=== PATIENT | female | born 1955 | race Caucasian/White ===

== ENCOUNTER 2017-08-10 11:10 | Day surgery (SDC) | payer BC ==
[2017-08-09 12:17] VITALS: BMI 27.3
--- NOTE | 2017-08-10 08:13 | HP ---
Satellite H - Chief Complaint Chief Complaint: right hand pain, weakness, numbness History of Present Illness: right CTS, Cubital tunnel syndrome History Source: Patient Limitations to Obtaining History: No Limitations - Past Medical History Allergies/Adverse Reactions: Allergies Allergy/AdvReac Type Severity Reaction Status Date / Time ziprasidone [From Carmela] Allergy Intermediate Verified 08/09/17 12:18 Pulmonary: Yes: Sleep Apnea (former sleep apnea, resolved after gastric bypass) Gastrointestinal: Yes: Peptic Ulcer Disease (duodenal ulcer with perforation 2007) Heme/Onc: Yes: Anemia (IV iron therapy occasionally needed 4 transfusions over last 3 years since duodenal ulcer diagnosis) Musculoskeletal: Yes: Osteoarthritis, Other (peripheral neuropathy bilateral lower extremities (since chemotherapy)) Rheumatology: Yes: Fibromyalgia - Current Medications Current Medications: Home Medications Medication Instructions Recorded Escitalopram Oxalate [Lexapro -] 10 mg PO DAILY 07/11/14 Losartan/Hydrochlorothiazide 1 each PO DAILY 07/11/14 [Hyzaar 100-25 Tablet] Aspirin [ASA -] 81 mg PO DAILY 08/09/17 Buspirone HCl [Buspar -] 50 mg PO BID 08/09/17 Protonix 40 mg PO DAILY 08/09/17 Satellite Physical Exam - Physical Examination General Appearance: Well Nourished ENT: Clear Lung: Clear to auscultation Heart: Regular rate & rhythm Breasts: Soft, Other Abdomen: Soft, No hepatosplenomegaly Satellite Impression/Plan - Impression/Plan Impression: right CTS and Cubital tunnel syndrome Operative Procedure: right CTR and Ulnar nerve transposition Date to be Performed: 08/10/17
[2017-08-10] MEDS ORDERED: ceFAZolin SODIUM 1 GM VIAL IVPB ONE (13:05)
[2017-08-10] MEDS ORDERED: PROPOFOL 20 ML ONE (13:12)
[2017-08-10] MEDS ORDERED: MIDAZOLAM HCL 2 MG/2 ML SINGLE DOSE VIAL ONE (13:12)
[2017-08-10] MEDS ORDERED: SUCCINYLCHOLINE CHLORIDE 200 MG/10 ML VIAL ONE (13:12)
[2017-08-10] MEDS ORDERED: DEXAMETHASONE SOD PHOSPHATE 4 MG/1 ML VIAL ONE (13:22)
[2017-08-10] MEDS ORDERED: ePHEDrine SULFATE 50 MG/1 ML AMPULE ONE (13:24)
--- NOTE | 2017-08-10 14:38 | OP ---
Operative Note - Note: Operative Date: 08/10/17 Pre-Operative Diagnosis: right CTS, and Cubital tunnel syndrome Operation: right CTR, tenosynovectomy, subcutaneous ulnar nerve transposition Post-Operative Diagnosis: Same as Pre-op Surgeon: Rome Cardenas Anesthesiologist/AIR CONDITIONING INSTALLER SUPERVISOR: Matilde Mattson Anesthesia: General, Local Specimens Removed: tenosynovium Estimated Blood Loss (mls): 0 Drains, Volume Out (mls): 0 Blood Volume Replaced (mls): 0 Fluid Volume Replaced (mls): 1,000 Operative Report Dictated: Yes
[2017-08-10] MEDS ORDERED: ONDANSETRON 4 MG/2 ML VIAL IVPUSH PRN (15:36)
[2017-08-10] MEDS ORDERED: LACTATED RINGERS SOLUTION 1,000 ML IV SCH (15:45)
[2017-08-10] MEDS ORDERED: oxyCODONE HCL 5 MG TABLET PO PRN ×2 (15:48)
[2017-08-10 16:10] VITALS: TEMP 97.6
[2017-08-10] MEDS ORDERED: oxyCODONE HCL 5 MG TABLET ONE (16:38)
[2017-08-10 17:13] VITALS: BP 140/90; PULSE 100
--- NOTE | 2017-08-11 11:43 | SPEC ---
DATE OF OPERATION: 08/10/2017 PREOPERATIVE DIAGNOSIS: Right carpal tunnel syndrome and cubital tunnel syndrome. POSTOPERATIVE DIAGNOSIS: Right carpal tunnel syndrome and cubital tunnel syndrome. OPERATION: Right carpal tunnel release, tenosynovectomy, and subcutaneous ulnar nerve transposition. SURGEON: Stephania Kimbrough M.D. PHARMACEUTICAL PROCESS ENGINEER: None. RUBBER GOODS TESTER WATER ANESTHESIA: LMA with local injection with 15 mL of 0.5% Marcaine and 1% lidocaine mix. DRAINS: None. COMPLICATIONS: None. SPECIMENS: Tenosynovium, right wrist. BLOOD LOSS: None. BLOOD GIVEN: None. FLUID REPLACEMENT: 1000 mL. INDICATIONS: This patient is a 62-year-old female with the preoperative diagnoses of right carpal tunnel syndrome and cubital tunnel syndrome. After understanding the potential risks, complications, alternatives and benefits of surgery versus nonsurgical treatment, the patient elected to undergo this procedure. She understands she likely will not get complete relief of her symptoms, including continuation of some of her numbness and tingling, continual weakness and dysfunction. DESCRIPTION OF PROCEDURE: The patient was brought to the operating room, peripheral IV placed and intravenous sedation was given. One gram of intravenous Ancef was given. MAC anesthesia was induced. A tourniquet was applied to the right upper arm and the right upper extremity was prepped and draped in sterile fashion. The entire case was done under 3.8 loupe magnification. A marking pen was utilized to timo out a longitudinal incision in an already existing skin crease. Twenty mL of 0.5% Marcaine mixed with 1% Lidocaine was injected in and around the surgical incision. The right upper extremity was elevated, exsanguinated with an Esmarch bandage and the tourniquet inflated to 250 mmHg. A No. 15 scalpel blade was utilized to cut down through the skin. Subcutaneous hemostasis was achieved with the bipolar cautery. Dissection was done through the superficial palmar fascia. Self-retaining retractors were placed into the wound. Under direct visualization, the transverse carpal ligament was transected with a No. 15 scalpel blade, exposing the median nerve and the contents of the carpal tunnel. The distal and proximal extents of the release were completed with a Littler scissor and checked with irrigation and my small finger. They were seen to be complete. Limited dissection was done on the radial side of the median nerve and more extensive dissection was done on the ulnar side of the median nerve. The patients nerve was seen to be quite compressed by epineurium and therefore a limited epineurotomy was performed. A Ragnell retractor was used to gently retract the median nerve in a radial direction. The patient had a lot of tenosynovitis and therefore a tenosynovectomy was performed off all 9 flexor tendons. This was passed off the field as tenosynovium right wrist. The floor of the carpal tunnel was checked. There were no abnormal masses or ganglion cysts. The area was copiously irrigated and washed out and closure begun. Undyed 4-0 Vicryl was used to close the deep dermal layer. Final skin reapproximation was done with horizontal mattress 4-0 nylon sutures. Next, we turned our attention to the right elbow. A curvilinear incision was marked out with a marking pen. The incision was made with a number 15 scalpel blade. Dissection was done down through the subcutaneous fat. Weitlaner retractors were placed into the wound. We dissected down to the medial epicondyle. Anterior and posterior flaps were raised. The ulnar nerve was identified proximally. Circumferential dissection was done. A 1/2-inch Harpreet drain was placed around it for identification, retraction and protection. I then worked my way distally. The cubital tunnel was very tight. I released the roof of the cubital tunnel. Ahuja ligament was very tight. This was released as well, as well as the 2 heads of the FCU. I was then able to feel it with my finger, going proximally to see there were no other points of compression. There was no significant midlength muscular septum. I was able to transpose the nerve anterior to the axis of rotation of the elbow quite easily. The area was copiously irrigated and washed out. Next, I used 2-0 Vicryl suture to tack down the deep adipose layer to the medial epicondyle, then the anterior deep adipose layer to the posterior deep adipose layer, tacking this down as well. I checked several points during this process to make sure the ulnar nerve was not tacked down. It was not. It was not tight at any location. I could move the elbow under direct visualization with no problems. Next, 2-0 Vicryl was used to close the deep adipose layer. 4-0 undyed Vicryl was used to close the deep dermal layer. Final skin reapproximation was done with a running subcuticular 4-0 Biosyn stitch. The area was then washed and dried, covered with Steri-Strips. The carpal tunnel syndrome incision was covered with Xeroform, 4x4s, fluffs between the fingers, Webril on the entire arm, and a 5-inch Ortho-Glass splint was put on in a posterior splint fashion and held in place with a 4-inch and a 6-inch Alexander bandages. The tourniquet was taken down after a total tourniquet time of 58 minutes. There were no complications during the case. The patient tolerated the procedure quite well and was brought to the ambulatory recovery room in stable condition. STEPHANIA KIMBROUGH M.D. [id number]
--- NOTE | 2017-08-12 16:13 | PATH ---
Surgical Pathology Report Patient Name: CECI SINHA [facility]. Rec. #: [id number] /Age/Gender: 1955 (Age: 62) / F Account: [id number] Location: [facility] Taken: 08/10/2017 Received: 08/11/2017 Reported: 08/12/2017 Physicians: Rome Cardenas M.D. Specimen(s) Received TENOSYNOVIUM RIGHT WRIST Clinical History Right carpal tunnel syndrome Final Diagnosis TENOSYNOVIUM, WRIST, RIGHT, EXCISION: BENIGN DENSE FIBROCONNECTIVE TISSUE. Electronically Signed Hanh Webster M.D. Gross Description Received in formalin labeled "tenosynovium right wrist," is a 0.8 x 0.4 x 0.2 cm aggregate of oseguera-yellow soft tissue fragments. The specimen is entirely submitted in one cassette. /08/11/201708/11/2017
== END 2017-08-10 17:15 | disposition home or self-care (01) ==
LOC: JASU-SURG 11:10
PROVIDERS: ATTEND Orthopaedic Surgery
PROC: 01N50ZZ Release Median Nerve, Open Approach (ICD-10-PCS; principal; 2017-08-10 12:30)
PROC: 01X40Z4 Transfer Ulnar Nerve to Ulnar Nerve, Open Approach (ICD-10-PCS; 2017-08-10 12:30)
DX: G56.01 Carpal tunnel syndrome, right upper limb (principal); G56.21 Lesion of ulnar nerve, right upper limb
CPT/HCPCS: 88304-TC; 94760

== ENCOUNTER 2018-11-15 09:10 | Emergency (ER) | payer BC ==
--- NOTE | 2018-11-15 09:25 | PDOC ---
History of Present Illness - General Chief Complaint: Bite Stated Complaint: CAT BITE RIGHT LOWER LEG Time Seen by Provider: 11/15/18 09:24 - History of Present Illness Initial Comments: 11/15/18 09:38 Chief complaint: Cat bite History of present illness: Patient bitten by a feral cat approximately 36 hours ago right lateral calf. Complains of pain with palpation, redness, and swelling developing today. Needs tetanus immunizations and antibiotics because she has "joint replacements" and wishes to avoid infection. Took 2 g of amoxicillin last night, and another 500 mg this morning. Review of systems: Denies fever/chills or other systemic sign of infection. There is distal numbness tingling pain or weakness, limited range of motion or difficulty ambulating. Denies chest pain shortness of breath abdominal pain nausea vomiting diarrhea visual or focal neurologic symptoms. Remainder systems reviewed and negative Past medical history: Surgery for prosthetic joints, bipolar illness, depression , anxiety, and high blood pressure controlled on antihypertensive medication. Denies diabetes Social/family history reviewed and noncontributory Physical exam: Alert and oriented well-developed well-nourished no acute distress cooperative Afebrile, vital signs normal Right lower extremity: 3 superficial puncture wounds are visible, mid calf, laterally. Mild surrounding erythema and point tenderness. Mild localized swelling. Pulses full. No distal sensory or motor deficits. No lymphangitic streaking. Impression: Multiple puncture wounds right calf secondary to cat right. Plan: Tetanus booster, dose of intravenous antibiotics to continue orally. Close observation and follow-up primary physician. Return to ER if symptoms are worse area. The cat is confined at her home and will be presented to authorities as directed. Past History - Past Medical History Allergies/Adverse Reactions: Allergies Allergy/AdvReac Type Severity Reaction Status Date / Time ziprasidone [From Geodon] Allergy Intermediate Verified 08/09/17 12:18 pregabalin [From Lyrica] AdvReac Verified 11/15/18 09:22 Home Medications: Ambulatory Orders Escitalopram Oxalate [Lexapro -] 10 mg PO HS 07/11/14 Aspirin [ASA -] 81 mg PO DAILY 08/09/17 Buspirone HCl [Buspar -] 50 mg PO BID 08/09/17 Amox-Tr/K Cl [Augmentin 875-125mg Tablet -] 1 tab PO BID #14 tablet 11/15/18 Candesartan/Hydrochlorothiazid [Candesartan-Hctz 16-12.5 mg Tb] 1 each PO DAILY 11/15/18 Pantoprazole Sodium [Protonix] 40 mg PO DAILY 11/15/18 Anemia: Yes Asthma: No Cancer: Yes (BREAST, LEFT MASTECTOMY 2010) Cardiac Disorders: No CVA: No COPD: No CHF: No Dementia: No Diabetes: No GI Disorders: Yes (PERFORATED ULCERS 2010) Disorders: No HTN: Yes Hypercholesterolemia: No Liver Disease: No Psychiatric Problems: Yes (BIPOLAR) Seizures: No Thyroid Disease: No - Surgical History Abdominal Surgery: Yes (GASTRIC BYPASS, PERFORATED ULCER) Appendectomy: No Cardiac Surgery: No Cholecystectomy: No Lung Surgery: No Neurologic Surgery: No Orthopedic Surgery: Yes (L HIP BILAT KNEE REPLACEMENTS) - Suicide/Smoking/Psychosocial Hx Smoking History: Never smoked Have you smoked in the past 12 months: No Hx Alcohol Use: No Drug/Substance Use Hx: No Substance Use Type: None Hx Substance Use Treatment: No *DC/Admit/Observation/Transfer Diagnosis at time of Disposition: Cat bite involving extremity - Discharge Dispostion Disposition: HOME Condition at time of disposition: Stable Decision to Admit order: No - Prescriptions Prescriptions: Amox-Tr/K Cl [Augmentin 875-125mg Tablet -] 1 tab PO BID #14 tablet - Referrals Referrals: Ralph Looney MD [Primary Care Provider] - 2 Days - Patient Instructions Printed Discharge Instructions: How to Care for a Domestic Animal Bite Additional Instructions: Rest, elevation, and warm compresses. Avoid prolonged standing and walking, try to keep the leg elevated at all times , this is the best way to prevent infection. Antibiotics as directed. Recheck primary physician. If signs of infection worsen , return to ER. - Post Discharge Activity
[2018-11-15 09:28] VITALS: BP 106/65; PULSE 75; TEMP 97.9; BMI 29.8
[2018-11-15] MEDS ORDERED: AMPICILLIN NA/SULBACTAM NA 1.5 GM in SODIUM CHLORIDE 100 ML IVPB ONE (09:34)
[2018-11-15] MEDS ORDERED: DIPHTH,PERTUSS(ACELL),TET 0.5 ML DISP.SYRIN IM ONE ×2 (09:36→09:59)
[2018-11-15] MEDS ORDERED: AMPICILLIN NA/SULBACTAM NA 1.5 GM VIAL ONE (09:59)
== END 2018-11-15 10:56 | disposition home or self-care (01) ==
LOC: FER 09:10
PROC: 3E0234Z Introduction of Serum, Toxoid and Vaccine into Muscle, Percutaneous Approach (ICD-10-PCS; principal; 2018-11-15)
PROC: 3E03329 Introduction of Other Anti-infective into Peripheral Vein, Percutaneous Approach (ICD-10-PCS; 2018-11-15)
DX: S81.851A Open bite, right lower leg, initial encounter (principal); W55.01XA Bitten by cat, initial encounter; Y93.89 Activity, other specified; Y92.89 Other specified places as the place of occurrence of the external cause; F31.9 Bipolar disorder, unspecified; I10 Essential (primary) hypertension; Z85.3 Personal history of malignant neoplasm of breast; Z96.698 Presence of other orthopedic joint implants
CPT/HCPCS: 90715; 99282-25